=== PATIENT | male | born 1975 | race Caucasian/White ===

== ENCOUNTER 2018-02-06 06:30 | Day surgery (SDC) | payer OTHER | END 2018-02-06 11:45 | disposition home or self-care (01) | LOC: AMB-ENDOS 06:30 → LAB 12:37 → AMB-ENDOS 14:44 | DX: D12.8 Benign neoplasm of rectum (principal); K52.89 Other specified noninfective gastroenteritis and colitis ==

== ENCOUNTER 2018-04-23 06:00 | Day surgery (SDC) | payer OTHER ==
[~2018-04-23 06:00] MED LIST: [UNRECOGNIZED DRUG - OTHER] PO
[2018-04-23] MEDS ORDERED: RECTICARE30 GM TOP (10:02)
[2018-04-23] MEDS ORDERED: POLY119PG PO (10:03)
[2018-04-23] MEDS ORDERED: NEURONTIN300 MG PO (10:03)
[2018-04-23] MEDS ORDERED: PERCOCET 5-3251 EACH PO (10:04)
== END 2018-04-23 16:00 | disposition home or self-care (01) ==
LOC: CIR.AMB 06:00 → ADM 04-24 10:00
DX: K64.8 Other hemorrhoids (principal); K64.4 Residual hemorrhoidal skin tags

== ENCOUNTER 2020-01-27 08:40 | Day surgery (SDC) | payer OTHER ==
[~2020-01-27 08:40] MED LIST changes: +ACID REDUCER20 M1 PO; +MESALAMINE PO; +NEURONTIN300 MG PO; +PEPCID AC20 MG PO; +PERCOCET 5-3251 EACH PO; +POLY119PG PO; +RECTICARE30 GM TOP
[2020-01-27] MEDS ORDERED: PERCOCET 5-3251 EACH PO (14:52)
[2020-01-27] MEDS ORDERED: RECTICARE30 GM TOP (14:55)
== END 2020-01-27 19:30 | disposition home or self-care (01) ==
LOC: CIR.AMB 08:40 → ADM 10:45 → CIR.AMB 19:30
PROVIDERS: ATTEND Surgery
DX: K60.3 Anal fistula (principal)

== ENCOUNTER 2020-07-18 07:40 | Day surgery (SDC) | payer OTHER ==
[2020-07-18] MEDS ORDERED: PERCOCET 5-3251 EACH PO (11:56)
[2020-07-18] MEDS ORDERED: NEURONTIN300 MG PO (11:57)
== END 2020-07-18 17:38 | disposition home or self-care (01) ==
LOC: CIR.AMB 07:40
PROVIDERS: ATTEND Surgery
DX: K60.3 Anal fistula (principal); Z20.828 Contact with and (suspected) exposure to other viral communicable diseases